=== PATIENT | female | born 1985 | race Two or more races ===

== ENCOUNTER 2024-10-26 12:11 | Inpatient (IN) | payer OTHER ==
[~2024-10-26] VITALS: Ht 162.6 cm; Wt 111.0 kg
--- NOTE | 2024-10-26 12:27 | ED.PDOC ---
History of Present Illness HPI Comments 39 y/o F, with no prior cardiac history presents to the ED for CC of abnormal EKG. Patient reports, she is coming from Urgent Care where she was relayed to the ED d/t an abnormal EKG; patient endorses to have been having experiencing chest pain. Patient denies cough, congestion, shortness of breath, nausea, or vomiting. Chief Complaint: Abnormal LAB's Time Seen by MD: 12:30 Reviewed Notes: Nurses Notes, Medications, Allergies Allergies: Coded Allergies: Amoxicillin (Verified Allergy, Unknown, 10/26/24) Metoclopramide (Verified Allergy, Unknown, 10/26/24) Potassium Chlorate (Verified Allergy, Unknown, 10/26/24) Information Source: Patient Mode of Arrival: Ambulatory Severity: Moderate Timing: Minutes Duration: Since onset Prehospital treatment: None Past Medical History PAST MEDICAL HISTORY: Denies Surgical History: Denies all surgeries [employer] History: Denies all [employer] Hx Family History Family History: Unknown Social History Smoker: Non-Smoker Alcohol: Denies ETOH Use Drugs: Denies Drug Use Lives In: Home Constitutional: denies: chills, diaphoresis, fatigue, fever, malaise, sweats, weakness, others EENTM: denies: blurred vision, double vision, ear bleeding, ear discharge, ear drainage, ear pain, ear ringing, eye pain, eye redness, hearing loss, mouth pain, mouth swelling, nasal discharge, nose bleeding, nose congestion, nose pain, photophobia, tearing, throat pain, throat swelling, voice changes, others Respiratory: denies: cough, hemoptysis, orthopnea, SOB at rest, shortness of breath, SOB with excertion, stridor, wheezing, others Cardiovascular: reports: chest pain; denies: dizzy spells, diaphoresis, Dyspnea on exertion, edema, irregular heart beat, left arm pain, lightheadedness, palpitations, PND, syncope, others Gastrointestinal: denies: abdomen distended, abdominal pain, blood streaked bowels, constipated, diarrhea, dysphagia, difficulty swallowing, hematemesis, melena, nausea, poor appetite, poor fluid intake, rectal bleeding, rectal pain, vomiting, others Genitourinary: denies: abnormal vagina bleeding, burning, dyspareunia, dysuria, flank pain, frequency, hematuria, incontinence, pain, , vagina discharge, urgency, others Neurological: denies: dizziness, fainting, headache, left sided numbness, left sided weakness, numbness, paresthesia, pre-existing deficit, right sided numbness, right sided weakness, seizure, speech problems, tingling, tremors, weakness, others Musculoskeletal: denies: back pain, gout, joint pain, joint swelling, muscle pain, muscle stiffness, neck pain, others Integumetry: denies: bruises, change in color, change in hair/nails, dryness, laceration, lesions, lumps, rash, wounds, others Allergic/Immunocompromised: denies: Difficulty Healing, Frequent Infections, Hives, Itching, others Hematologic/Lymphatic: denies: anemia, blood clots, easy bleeding, easy bruising, swollen glands, others Endocrine: denies: excessive hunger, excessive sweating, excessive thirst, excessive urination, flushing, intolerance to cold, intolerance to heat, unexplained weight gain, unexplained weight loss, others Psychiatric: denies: anxiety, bipolar disorder, depression, hopeless, panic disorder, schizophrenia, sleepless, suicidal, others All Other Systems: Reviewed and Negative Physical Exam General Appearance: Moderate Distress HEENT: Normal ENT Inspection, Pharynx Normal, TMs Normal Neck: Full Range of Motion, Non-Tender, Normal, Normal Inspection Respiratory: Chest Non-Tender, Lungs Clear, No Accessory Muscle Use, No Respiratory Distress, Normal Breath Sounds Cardiovascular: No Edema, No JVD, No Murmur, No Gallop, Normal Peripheral Pulses, Regular Rate/Rhythm Breast Exam: Deferred Gastrointestinal: No Organomegaly, Non Tender, No Pulsatile Mass, Normal Bowel Sounds, Soft Genitalia: Deferred Pelvic: Deferred Rectal: Deferred Extremities: No calf tenderness, Normal capillary refill, Normal inspection, Normal range of motion, Non-tender, No pedal edema Musculoskeletal : Apperance: Normal Neurologic: Alert, program aide II-XII nml as Tested, No Motor Deficits, Normal Affect, Normal Mood, No Sensory Deficits Cerebellar Function: Normal Reflexes: Normal Skin: Dry, Normal Color, Warm Peripheral Pulses: 3+ Radial (R), 3+ Radial (L) Lymphatic: No Adenopathy Was a procedure done? Was a procedure done?: No EKG EKG : Pulse Rate (adult): 85 [place]: Normal Cardiac Rhythm: NSR Block: None Hypertrophy: None ST: Normal Differential Dx Considerations may include: Pulmonary hypertension Electrolyte imbalance X-Ray, Labs, Meds, VS Vital Signs Date Time Temp Pulse Resp B/P (MAP) Pulse Ox O2 Delivery O2 Flow Rate FiO2 10/26/24 12:31 85 10/26/24 12:27 85 10/26/24 12:14 97.5 92 16 147/92 97 97.5 Lab Test 10/26/24 14:03 10/26/24 13:07 Range/Units Troponin I High Sensitivity < 3 L < 3 L </=34 ng/L White Blood Count 6.5 4.4-10.8 10^3/uL Red Blood Count 4.20 4.0-5.20 10^6/uL Hemoglobin 12.3 12.2-16.2 g/dL Hematocrit 37.6 36.0-46.0 % Mean Corpuscular Volume 89.6 80.0-100.0 fL Mean Corpuscular Hemoglobin 29.4 28.0-32.0 pg Mean Corpuscular Hemoglobin Concent 32.8 32.0-36.0 g/dL Red Cell Distribution Width 13.3 11.8-14.3 % Platelet Count 332 140-450 10^3/uL Mean Platelet Volume 7.7 6.9-10.8 fL Neutrophils (%) (Auto) 52.3 37.0-80.0 % Lymphocytes (%) (Auto) 39.4 10.0-50.0 % Monocytes (%) (Auto) 4.6 0.0-12.0 % Eosinophils (%) (Auto) 2.7 0.0-7.0 % Basophils (%) (Auto) 1.0 0.0-2.0 % Neutrophils # (Auto) 3.4 1.6-8.6 10 ^3/uL Lymphocytes # (Auto) 2.5 0.4-5.4 10 ^3/uL Monocytes # (Auto) 0.3 0-1.3 10 ^3/uL Eosinophils # (Auto) 0.2 0-0.8 10 ^3/uL Basophils # (Auto) 0.1 0-0.2 10 ^3/uL Nucleated Red Blood Cells 0.1 % Sodium Level 142 136-145 mmol/L Potassium Level 4.2 3.5-5.1 mmol/L Chloride Level 105 98-107 mmol/L Carbon Dioxide Level 29 20-31 mmol/L Anion Gap 8 5-15 Blood Urea Nitrogen 11 9-23 mg/dL Creatinine 0.91 0.550-1.02 mg/dL Glomerular Filtration Rate Calc 82 >90 mL/min BUN/Creatinine Ratio 12.1 10.0-20.0 Serum Glucose 117 H 74-106 mg/dL Calcium Level 9.5 8.7-10.4 mg/dL Patient alert. Complaining of chest pain. Vitals stable. Answering questions. EKG reviewed does not show any acute changes possible old changes. Cardiology consultation. Echocardiogram. History of pulmonary hypertension. Continues to have chest pain. High-risk. Was given aspirin. Explained to the patient. Continue monitoring. Time of 1ST Reevaluation: 13:00 Reevaluation 1ST: Unchanged Patient Education/Counseling: Diagnosis, Treatment Family Education/Counseling: No Family Present SEPSIS Sepsis Screen Date sepsis recognized/suspect: Oct 26, 2024 Time Sepsis recognized/suspect: 1217 Recent Procedure: No On Antibiotic Therapy: No Respiratory Rate >20: No Heart Rate >90: Yes Temp<36 C (96.8 F) or >38.3 C: No SBP <90 or MAP <65 mmHG: No New Acute Mental Status Change: No Is the patient on CPAP, BIPAP,: No Physician Orders Electrocardigram (10/26/24 12:30) Electrocardigram (10/26/24 13:30) Electrocardigram (10/26/24 15:30) Urinalysis (10/26/24 12:54) Vital Signs Date Time Temp Pulse Resp B/P (MAP) Pulse Ox O2 Delivery O2 Flow Rate FiO2 10/26/24 12:31 85 10/26/24 12:27 85 10/26/24 12:14 97.5 92 16 147/92 97 97.5 Laboratory Tests Test 10/26/24 13:07 White Blood Count 6.5 10^3/uL (4.4-10.8) Departure 1 Departure Time of Disposition: 15:58 Impression: Primary Impression: Chest pain of unknown etiology Disposition: ADMITTED INPATIENT Admit to: Med Surg Condition: Guarded Critical Care Note Critical Care Time?: No Stability Stability form required: No Heart Score Heart Score: Heart Score Response (Comments) Value History Slightly Suspicious 0 EKG Normal 0 Age <45 0 Risk Factors 1 or 2 risk factors 1 Troponin Normal limit 0 Total 1 I personally scribed for FRANCOIS BRYAN MD ([email or web address]) on 10/26/24 at 12:27. Electronically submitted by Zaida Recinos ([email or web address]). FRANCOIS BRYAN MD Oct 26, 2024 12:27
[2024-10-26 13:25] LABS: Chloride 105 mmol/L (98-107); Potassium 4.2 mmol/L (3.5-5.1); Sodium 142 mmol/L (136-145)
[2024-10-26 13:26] LABS: Anion Gap 8 (5-15); Calcium 9.5 mg/dL (8.7-10.4); Carbon Dioxide 29 mmol/L (20-31)
[2024-10-26 13:30] LABS: Hematocrit 37.6 % (36.0-46.0); Hemoglobin 12.3 g/dL (12.2-16.2); Mean Corpuscular Hemoglobin 29.4 pg (28.0-32.0); Mean Corpuscular Volume 89.6 fL (80.0-100.0); Nucleated Red Blood Cells % 0.1 %
[2024-10-26 13:31] LABS: BUN/Creatinine Ratio 12.1 (10.0-20.0); Blood Urea Nitrogen 11 mg/dL (9-23); Glucose 117 mg/dL (74-106)
[2024-10-26] MEDS: NITROGLYCERIN 0.4 MG SL TAB SL ONE (16:44)
[2024-10-26 18:59] LABS: Urine Protein, UAD Negative (Negative)
[2024-10-26] MEDS ORDERED: MORPHINE SULFATE INJ 2 MG/ml SYRG IV PRN (23:15)
--- NOTE | 2024-10-26 23:17 | DVHHPRES ---
History of Present Illness Resident Creating Document: CANDE BEAULIEU RESIDENT History of Present Illness Maria R Encarnacion is a 39-year-old female, with past medical history of pulmonary hypertension, sleep apnea, anemia and hypertension. The patient presents to the ED with history of 1 week of chest pain 7/10, pressure-like, substernal, intermittent, every episode last 2hrs, irradiates to the jaw, that aggravate with movements or activity and improves at rest. associate with SOB, orthopnea, dizziness, cold sweat and lightheaded. Today, the pain exacerbates to 10/10, patient decided to visit the local urgent care and was referred to [facility] after being found with an abnormal EKG. Patient denies fever, chills, cough, congestion, nausea, or vomiting. Initial evaluation in the ED showed troponins <3, <3., BP 128/76mmHg. The patient will be admitted for further evaluation and management. Cardiovascular: HTN, pulmonary hypertension Pulmonary: Asthma Heme/Onc: Anemia NOS Psych: Anxiety Renal/: Other (PCOS) Endocrine: Other (Pre-Diabetes) Past Surgical History: Other (Breast reduction, L Rotator cuff arthroscopy ) Family History: Hyperlipidemia, Hypertension Smoke: No ALCOHOL: none Drugs: None Lives: with Family Review of Systems Constitutional: No: Fever, Chills, Sweats, Weakness, Malaise, Other Eyes: No: Pain, Vision change, Conjunctivae inflammation, Eyelid inflammation, Other, Redness ENT: No: Ear pain, Ear discharge, Nose pain, Nose discharge, Nose congestion, Mouth pain, Mouth swelling, Throat pain, Throat swelling, Other Respiratory: Shortness of breath, SOB with excertion; No: Cough, Dry, Wheezing, Hemoptysis, Pleuritic Pain, Sputum, Wheezing, Other Cardiovascular: Chest Pain, Palpitations, Orthopnea, Lt Headedness; No: Paroxysmal Noc. Dyspnea, Edema, Other Gastrointestinal: No: Nausea, Vomiting, Abdominal Pain, Diarrhea, Constipation, Melena, Hematochezia, Other Genitourinary: No Dysuria, No Frequency, No Incontinence, No Hematuria, No Retention, No Other Musculoskeletal: No: other, neck pain, shoulder pain, arm pain, back pain, hand pain, leg pain, foot pain Skin: No: Rash, Lesions, Jaundice, Bruising, Other Neurological: No: Weakness, Numbness, Incoordination, Change in speech, Confusion, Seizures, Other Allergies: Coded Allergies: Amoxicillin (Verified Allergy, Unknown, 10/26/24) Metoclopramide (Verified Allergy, Unknown, 10/26/24) Potassium Chlorate (Verified Allergy, Unknown, 10/26/24) Exam Vital Signs Vital Signs Date Time Temp Pulse Resp B/P (MAP) Pulse Ox O2 Delivery O2 Flow Rate FiO2 10/26/24 20:01 98.1 80 20 128/76 (93) 96 98.1 10/26/24 20:01 Room Air General Appearance: Alert, Oriented X3, No acute distress HEENT: Atraumatic, Mucous membr. moist/pink Respiratory: Clear to auscultation, Normal air movement Cardiovascular: Regular rate, Normal S1, Normal S2, No murmurs Abdominal: Normal bowel sounds, Soft, No tenderness, No hepatospenomegaly, No masses Extremities: No clubbing, No cyanosis, No edema, Normal pulses, No tenderness/swelling Skin: No rashes, No breakdown, No significant lesion Neuro: Normal gait, Normal speech, Normal tone, Sensation intact Psych/Mental Status: Mental status NL, Mood NL Labs/Xrays Labs Test 10/26/24 15:58 10/26/24 14:03 10/26/24 13:07 Range/Units Urine Color Light-yellow Yellow Urine Clarity Turbid H Clear Urine pH 6.5 5.0-9.0 Urine Specific [place] 1.011 1.001-1.035 Urine Protein Negative Negative Urine Ketones Negative Negative Urine Blood Negative Negative /uL Urine Nitrite Negative Negative Urine Bilirubin Negative Negative Urine Urobilinogen Normal Negative mg/dL Urine Leukocyte Esterase Negative Negative /uL Urine Glucose Normal Normal mg/dL Troponin I High Sensitivity < 3 L </=34 ng/L White Blood Count 6.5 4.4-10.8 10^3/uL Red Blood Count 4.20 4.0-5.20 10^6/uL Hemoglobin 12.3 12.2-16.2 g/dL Hematocrit 37.6 36.0-46.0 % Mean Corpuscular Volume 89.6 80.0-100.0 fL Mean Corpuscular Hemoglobin 29.4 28.0-32.0 pg Mean Corpuscular Hemoglobin Concent 32.8 32.0-36.0 g/dL Red Cell Distribution Width 13.3 11.8-14.3 % Platelet Count 332 140-450 10^3/uL Mean Platelet Volume 7.7 6.9-10.8 fL Neutrophils (%) (Auto) 52.3 37.0-80.0 % Lymphocytes (%) (Auto) 39.4 10.0-50.0 % Monocytes (%) (Auto) 4.6 0.0-12.0 % Eosinophils (%) (Auto) 2.7 0.0-7.0 % Basophils (%) (Auto) 1.0 0.0-2.0 % Neutrophils # (Auto) 3.4 1.6-8.6 10 ^3/uL Lymphocytes # (Auto) 2.5 0.4-5.4 10 ^3/uL Monocytes # (Auto) 0.3 0-1.3 10 ^3/uL Eosinophils # (Auto) 0.2 0-0.8 10 ^3/uL Basophils # (Auto) 0.1 0-0.2 10 ^3/uL Nucleated Red Blood Cells 0.1 % Sodium Level 142 136-145 mmol/L Potassium Level 4.2 3.5-5.1 mmol/L Chloride Level 105 98-107 mmol/L Carbon Dioxide Level 29 20-31 mmol/L Anion Gap 8 5-15 Blood Urea Nitrogen 11 9-23 mg/dL Creatinine 0.91 0.550-1.02 mg/dL Glomerular Filtration Rate Calc 82 >90 mL/min BUN/Creatinine Ratio 12.1 10.0-20.0 Serum Glucose 117 H 74-106 mg/dL Calcium Level 9.5 8.7-10.4 mg/dL SEPSIS Sepsis Screen Date sepsis recognized/suspect: Oct 26, 2024 Time Sepsis recognized/suspect: 2003 Recent Procedure: No On Antibiotic Therapy: No Respiratory Rate >20: No Heart Rate >90: No Temp<36 C (96.8 F) or >38.3 C: No SBP <90 or MAP <65 mmHG: No New Acute Mental Status Change: No Is the patient on CPAP, BIPAP,: No Physician Orders Insert Midline (10/26/24 16:43) Admit (10/26/24 23:09) Code Status (10/26/24 23:09) Vital Signs .PER UNIT PROTOCOL (10/26/24 23:09) Review Orders With (10/26/24 23:09) Bedrest With Bathroom Privileg (10/26/24 23:09) Notify Md Of Changes From Base (10/26/24 23:09) Advance Directive (10/26/24 23:09) Chest Two Views Routine (10/27/24 04:00) Urinalysis (10/26/24 23:09) Patient Condition (10/26/24 23:09) Allergies (10/26/24 23:09) Hydrocodone-Acet 5/325mg Tab ([place] 5/32 (10/26/24 23:15) Ondansetron Hcl (Zofran) (10/26/24 23:15) Drug Screen (10/26/24 23:09) Morphine 2mg Iv Q4hprn (10/26/24 23:15) Nitroglycerin Sublingual (Ntrostat Subli (10/26/24 23:15) Morphine Sulfate Injection (10/26/24 23:15) Stat Ekg For Chest Pain (10/26/24 23:09) Notify Md Of Changes From Base (10/26/24 23:09) Beta Hcg, Quantitative (10/26/24 23:09) D-Dimer (10/26/24 23:09) Covid19 Antigen Melisa (10/26/24 ) Rapid Influenza A&B (10/26/24 23:09) Vital Signs Date Time Temp Pulse Resp B/P (MAP) Pulse Ox O2 Delivery O2 Flow Rate FiO2 10/26/24 20:01 98.1 80 20 128/76 (93) 96 98.1 10/26/24 20:01 80 20 96 Room Air 10/26/24 16:25 97.9 75 16 137/80 (99) 99 97.9 Laboratory Tests Test 10/26/24 13:07 White Blood Count 6.5 10^3/uL (4.4-10.8) Medications Medications Dose Ordered Sig/Armani Route Start Time Stop Time Status Last Admin Dose Admin Aspirin 325 mg ONCE ONCE PO 10/26/24 16:00 10/26/24 16:01 DC 10/26/24 16:44 325 MG Assessment/Plan Assessment/Plan #Chest pain, R/O ACS #Pulmonary hypertension Aspirin 325mg po Nitroglycerin 0.4mg Iv Morphine 2mg IV Chest Xray Troponins EKG Consider ECHO and cardiac consult. #Rule out PE D-Dimer #Sleep Apnea Patient uses CPAP at home #Obesity Life style counselling #Anxiety Medication reconciliation. Cardiac diet DVT prophylaxis- ambulating. PUD prophylaxis Protonic. Goals of care discussed with the patient > 35 min. Discussed plan of care with Dr. New Code status: Full code PCP: Dr.Manuel Roper. Plan discussed with: Patient, the patient agrees with the admission plan. Plan discussed with: Patient My Orders Orders - CANDE BEAULIEU RESIDENT Procedure Category Date Status Time Admit ADMIT 10/26/24 Transmitted 23:09 Code Status CODE 10/26/24 Transmitted 23:09 Vital Signs [facility] 10/26/24 Transmitted 23:09 Review Orders With [facility] 10/26/24 Transmitted Adm. 23:09 Bedrest With Bathroom [facility] 10/26/24 Transmitted Privileg 23:09 Notify Md Of Changes [facility] 10/26/24 Transmitted From Base 23:09 Advance Directive [facility] 10/26/24 Transmitted 23:09 Chest Two Views XY 10/27/24 Logged Routine 04:00 Urinalysis LAB 10/26/24 Transmitted 23:09 Patient Condition ORDERS 10/26/24 Transmitted 23:09 Allergies [facility] 10/26/24 Transmitted 23:09 Hydrocodone-Acet PHA 10/26/24 Transmitted 5/325mg Tab ([place] 23:15 Ondansetron Hcl PHA 10/26/24 Transmitted (Zofran) 23:15 Drug Screen LAB 10/26/24 Transmitted 23:09 Morphine 2mg Iv Q4hprn PHA 10/26/24 Transmitted 23:15 Nitroglycerin PHA 10/26/24 Transmitted Sublingual (Ntrostat 23:15 Morphine Sulfate PHA 10/26/24 Transmitted Injection 23:15 Stat Ekg For Chest [facility] 10/26/24 Transmitted Pain 23:09 Notify Md Of Changes [facility] 10/26/24 Transmitted From Base 23:09 Beta Hcg, Quantitative LAB 10/26/24 Transmitted 23:09 D-Dimer LAB 10/26/24 Transmitted 23:09 Covid19 Antigen Melisa LAB 10/26/24 Transmitted Rapid Influenza A&B LAB 10/26/24 Transmitted 23:09 Date of Service: Oct 26, 2024 Billing Provider: RANI NEW MD Common Visit Codes: [id number] INP/OBS CARE (HIGH) Secondary Visit Codes: [id number] CARE PLAN 30 MINUTES CANDE BEAULIEU RESIDENT Oct 26, 2024 23:17
--- NOTE | 2024-10-27 00:16 | ECG ---
[facility] Test Date: 2024-10-26 Test Time: 12:21:17 Pat Name: JEY BLAKE Department: ED Room: [address] [place] [address] A Gender: F Relaster: sandra : 1985 Requested By: FRANCOIS BRYAN Order Number: [id number] Reading MD: Rodriguez Perez Measurements Intervals [place] Rate: 85 P: 19 TX: 138 QRS: 42 QRSD: 100 T: 26 QT: 396 QTc: 471 Interpretive Statements Sinus rhythm Baseline wander in lead(s) I,II,III,aVL,aVF,V1,V2 Electronically Signed On 10-27-2024 18:23:22 PDT by Rodriguez Perez Please click the below link to view image of tracing.
[2024-10-27] MEDS: ONDANSETRON HCL 4 MG/2 ML VIAL IV PRN (01:38)
[2024-10-27] MEDS: MORPHINE SULFATE INJ 2 MG/ml SYRG IV PRN (01:39)
[2024-10-27 02:24] VITALS: PULSE 71; RESP 15; O2SAT 95
[2024-10-27 03:16] VITALS: BP 119/66; PULSE 71; RESP 18; TEMP 98.2; O2SAT 99
[2024-10-27 04:24] LABS: COVID19 ANTIGEN SOFIA FIA NEGATIVE (NEGATIVE)
--- NOTE | 2024-10-27 05:55 | ECG ---
[facility] Test Date: 2024-10-27 Test Time: 05:53:54 Pat Name: JEY BLAKE Department: ER Room: [address] [place] [address] A Gender: F Rate Supervisor: JOSE RAFAEL : 1985 Requested By: CANDE BEAULIEU Order Number: [id number] Reading MD: Rodriguez Perez Measurements Intervals [place] Rate: 77 P: 15 NE: 149 QRS: 14 QRSD: 93 T: 1 QT: 394 QTc: 446 Interpretive Statements Sinus rhythm Borderline T wave abnormalities Electronically Signed On 10-27-2024 18:26:20 PDT by Rodriguez Perez Please click the below link to view image of tracing.
--- NOTE | 2024-10-27 06:32 | DVH ---
CHEST RADIOGRAPH Indication: Pulmonray hypertension Technique: Single frontal view of the chest was obtained COMPARISON: None FINDINGS: Lines and Tubes: None Lungs: Clear Pleura: No effusion. No pneumothorax. Cardiomediastinal contours: Unremarkable Bones: Unremarkable IMPRESSION: 1. No acute disease.
[2024-10-27 06:50] VITALS: BP 135/75; PULSE 71; RESP 20; TEMP 98; O2SAT 93
[2024-10-27 12:00] VITALS: TEMP 97.9; O2SAT 98
[2024-10-27 13:36] LABS: Hematocrit 34.9 % (36.0-46.0); Hemoglobin 11.6 g/dL (12.2-16.2); Mean Corpuscular Hemoglobin 29.5 pg (28.0-32.0); Mean Corpuscular Volume 88.8 fL (80.0-100.0); Nucleated Red Blood Cells % 0.0 %
[2024-10-27 13:54] LABS: Albumin 4.3 g/dL (3.2-4.8); Alkaline Phosphatase 66 U/L (46-116); Anion Gap 8 (5-15); BUN/Creatinine Ratio 10.8 (10.0-20.0); Blood Urea Nitrogen 9 mg/dL (9-23); Calcium 9.1 mg/dL (8.7-10.4); Carbon Dioxide 27 mmol/L (20-31); Chloride 107 mmol/L (98-107); Glucose 95 mg/dL (74-106); Potassium 4.0 mmol/L (3.5-5.1); Sodium 142 mmol/L (136-145); Total Protein 6.5 g/dL (5.7-8.2)
[2024-10-27 13:55] LABS: Alanine Aminotransferase < 9 U/L (7-40); Bilirubin, Total 0.2 mg/dL (0.2-1.0)
[2024-10-27] MEDS: NITROGLYCERIN 0.4 MG SL TAB SL PRN (14:50)
[2024-10-27 14:55] LABS: Magnesium 2.0 mg/dL (1.6-2.6)
[2024-10-27 14:56] LABS: Triglycerides 193.0 mg/dL (< 150)
[2024-10-27 14:57] LABS: Cholesterol 150.0 mg/dL (< 200); HDL Cholesterol 47.0 mg/dL (40-59)
--- NOTE | 2024-10-27 16:07 | DVHPNRES ---
Progress Note Date Seen: Oct 27, 2024 Resident Creating Document: NAZANIN PATTON Medical Necessity Reason Pt with a Central, PICC or Fol: No (RN) Subjective Review of Systems This is a 39-year-old female with a history of pulmonary hypertension, sleep apnea, anemia, and hypertension came to the ED with chest pain for 1 week. Patient reports that 1 week history of sharp, shooting, pressure-like substernal chest pain rated 7/10, every episode last 2hr, radiates to the jaw, aggravate with movements or activity and improves at rest, associate with SOB, orthopnea, dizziness, cold sweat and lightheaded. Today, the pain exacerbates to 10/10, patient decided to visit the local urgent care and was referred to [facility] after being found with an abnormal EKG. Patient denies fever, chills, cough, congestion, nausea, or vomiting. Initial evaluation in the ED showed troponins <3, <3., BP 128/76mmHg. The patient will be admitted for further evaluation and management. Past medical history: HTN, pulmonary hypertension, Asthma, PCOS, Pre-Diabetes Past surgical history: Breast reduction, L Rotator cuff arthroscopy Social & Personal history: Family History: Hyperlipidemia, Hypertension Smoke: No ALCOHOL: none Drugs: None Lives: with Family Allergies: Coded Allergies: Amoxicillin (Verified Allergy, Unknown, 10/26/24) Metoclopramide (Verified Allergy, Unknown, 10/26/24) Potassium Chlorate (Verified Allergy, Unknown, 10/26/24) Patient seen and examined at bedside. Patient is alert and oriented to time, place person and responding to all questions. Eyes: No Pain, No Vision change, No Conjunctivae inflammation, No Eyelid inflammation, No Other, No Redness ENT: No Ear pain, No Ear discharge, No Nose pain, No Nose discharge, No Nose congestion, No Mouth pain, No Mouth swelling, No Throat pain, No Throat swelling, No Other Cardiovascular: Chest Pain, Palpitations, Orthopnea, Lt Headedness. No Paroxysmal No Dyspnea, No Edema, No Other Respiratory: Shortness of breath, SOB with exertion. No Cough, No Dry, No Wheezing, No Hemoptysis, No Pleuritic Pain, No Sputum, No Other Gastrointestinal: No Nausea, No Vomiting, No Abdominal Pain, No Diarrhea, No Constipation, No Melena, No Hematochezia, No Other Genitourinary: No Dysuria, No Frequency, No Incontinence, No Hematuria, No Retention, No Other Musculoskeletal: No other, No neck pain, No shoulder pain, No arm pain, No back pain, No hand pain, No leg pain, No foot pain Skin: No Rash, No Lesions, No Jaundice, No Bruising, No Other Objective vital signs Vital Sign Date Time Temp Pulse Resp B/P (MAP) Pulse Ox O2 Delivery O2 Flow Rate FiO2 10/27/24 14:50 81 18 115/69 10/27/24 12:00 97.9 98 97.9 10/27/24 08:00 Room Air* 0 21 medications Current Medications Medications Dose Ordered Sig/Armani Route Start Time Stop Time Status Last Admin Dose Admin Acetaminophen/ Hydrocodone Bitart 1 tab Q4HP PRN PO 10/26/24 23:15 Ondansetron HCl 4 mg Q4HP PRN IV 10/26/24 23:15 10/27/24 01:38 4 MG Morphine Sulfate 2 mg Q4HPRN PRN IV 10/26/24 23:15 Nitroglycerin 0.4 mg Q5MINP PRN SL 10/26/24 23:15 10/27/24 14:50 0.4 MG Morphine Sulfate 2 mg Q30M PRN IV 10/26/24 23:15 10/27/24 12:14 2 MG laboratory and microbiology Laboratory Tests 10/27/24 13:04 Test 10/27/24 13:04 Range/Units Serum Glucose 95 74-106 mg/dL Labs and/or images reviewed: Labs reviewed by me, Image(s) reviewed by me Problem List/Assessment/Plan Problem List/Assessment/Plan # Acute chest pain, r/o ACS # Pulmonary hypertension # Rule out PE - Aspirine 325 mg PO - Nitroglycerin 0.4 mg IV - Morphine 2mg IV - Chest X-Ray: No acute disease - Troponin <3 - D-Dimer: 0.22 - BNP - Echocardiogram - EKG: Sinus rhythm. Borderline T wave abnormality - Cardiology consult # Sleep apnea - patient uses CPAP at home # Obesity - BMI 42.0 kg/m2 - Life style counselling - HbA1C # Anxiety - home medication Goals of care: Full code, discussed for >16 minutes on 10/27/24 Plan discussed with patient Plan discussed with Dr. Pavon Plan discussed with: Patient, Other My Orders My Orders Orders - YOU,YOUNGSANG RESIDENT Procedure Category Date Status Time * Cardiology Consult CONS 10/27/24 Transmitted 13:22 Complete Blood Count LAB 10/28/24 Verified 04:00 Basic Metabolic Panel LAB 10/28/24 Verified 04:00 Date of Service: Oct 27, 2024 Billing Provider: JAN PAVON MD Common Visit Codes: [id number] INP/OBS CARE(HIGH) NAZANIN PATTON Oct 27, 2024 16:07 JAN PAVON MD Nov 01, 2024 20:14
[2024-10-27 16:48] VITALS: BP 122/81; PULSE 96; RESP 18
[2024-10-27] MEDS: HYDROcodone-ACET 5/325MG TAB PO PRN (16:48)
--- NOTE | 2024-11-01 20:18 | DVHDS2 ---
Discharge Summary Date of Admission Oct 26, 2024 at 23:09 Date of Discharge: Oct 27, 2024 Labs/Diagnostic Data: Laboratory Results Test 10/27/24 13:04 10/27/24 03:00 10/26/24 23:31 10/26/24 15:58 White Blood Count 7.5 10^3/uL (4.4-10.8) Red Blood Count 3.92 10^6/uL (4.0-5.20) Hemoglobin 11.6 g/dL (12.2-16.2) Hematocrit 34.9 % (36.0-46.0) Mean Corpuscular Volume 88.8 fL (80.0-100.0) Mean Corpuscular Hemoglobin 29.5 pg (28.0-32.0) Mean Corpuscular Hemoglobin Concent 33.2 g/dL (32.0-36.0) Red Cell Distribution Width 13.6 % (11.8-14.3) Platelet Count 336 10^3/uL (140-450) Mean Platelet Volume 7.9 fL (6.9-10.8) Neutrophils (%) (Auto) 51.2 % (37.0-80.0) Lymphocytes (%) (Auto) 38.0 % (10.0-50.0) Monocytes (%) (Auto) 6.6 % (0.0-12.0) Eosinophils (%) (Auto) 3.0 % (0.0-7.0) Basophils (%) (Auto) 1.2 % (0.0-2.0) Neutrophils # (Auto) 3.8 10 ^3/uL (1.6-8.6) Lymphocytes # (Auto) 2.9 10 ^3/uL (0.4-5.4) Monocytes # (Auto) 0.5 10 ^3/uL (0-1.3) Eosinophils # (Auto) 0.2 10 ^3/uL (0-0.8) Basophils # (Auto) 0.1 10 ^3/uL (0-0.2) Nucleated Red Blood Cells 0.0 % Sodium Level 142 mmol/L (136-145) Potassium Level 4.0 mmol/L (3.5-5.1) Chloride Level 107 mmol/L (98-107) Carbon Dioxide Level 27 mmol/L (20-31) Anion Gap 8 (5-15) Blood Urea Nitrogen 9 mg/dL (9-23) Creatinine 0.83 mg/dL (0.550-1.02) Glomerular Filtration Rate Calc 92 mL/min (>90) BUN/Creatinine Ratio 10.8 (10.0-20.0) Serum Glucose 95 mg/dL (74-106) Hemoglobin A1c 5.6 % A1C (<5.7) Calcium Level 9.1 mg/dL (8.7-10.4) Magnesium Level 2.0 mg/dL (1.6-2.6) Total Bilirubin 0.2 mg/dL (0.2-1.0) Aspartate Amino Transferase (AST) 11 U/L (13-40) Alanine Aminotransferase (ALT) < 9 U/L (7-40) Alkaline Phosphatase 66 U/L (46-116) B-Type Natriuretic Peptide 14.06 pg/mL (0-100) Total Protein 6.5 g/dL (5.7-8.2) Albumin 4.3 g/dL (3.2-4.8) Triglycerides Level 193 mg/dL (< 150) Cholesterol Level 150 mg/dL (< 200) LDL Cholesterol 86 mg/dL (< 100) HDL Cholesterol 47 mg/dL (40-59) Influenza Type A Antigen Negative (Negative) Influenza Type B Antigen Negative (Negative) SARS-CoV-2 Antigen (Rapid) Negative (NEGATIVE) D-Dimer, Quantitative 0.22 mg/L FEU (0.0-0.49) Beta HCG, Quantitative 0.3 mIU/mL (1.5-4.2) Urine Color Light-yellow (Yellow) Urine Clarity Turbid (Clear) Urine pH 6.5 (5.0-9.0) Urine Specific [place] 1.011 (1.001-1.035) Urine Protein Negative (Negative) Urine Ketones Negative (Negative) Urine Blood Negative /uL (Negative) Urine Nitrite Negative (Negative) Urine Bilirubin Negative (Negative) Urine Urobilinogen Normal mg/dL (Negative) Urine Leukocyte Esterase Negative /uL (Negative) Urine Glucose Normal mg/dL (Normal) Test 10/26/24 14:03 Troponin I High Sensitivity < 3 ng/L (</=34) Other Laboratory Tests 10/27/24 13:04 Brief Hx & Hospital Course: Final diagnoses: Acute chest pain, undetermined etiology Pulmonary hypertension Sleep apnea Obesity Anxiety The patient was seen in ER and was admitted however she left the hospital AMA. Condition at Discharge: Undetermined Final Diagnosis/Problems List Chest pain Discharge Disposition: AMA SNF Discharge Will this Physician continue t: No Discharge Statement: "Patient was advised to return to the ER or call 911 if any headaches, dizziness, shortness of breath, chest pain, abdominal pain, bleeding, fevers, or worsening of medical condition. Patient was counseled about treatment plan, medications, possible side effects, patientverbalized understanding. All questions were answered to the best of my ability. This discharge took greater then 30 minutes in planning, reviewing documentation, counseling the patient, and discussing with other team members." ASSESSMENT ASSESSMENT Assessment Date of Service: Oct 27, 2024 Billing Provider: JAN BROWN MD Common Visit Codes: NOT BILLABLE JAN BROWN MD Nov 01, 2024 20:18
== END 2024-10-27 17:15 | disposition left against medical advice (07) | DRG 313 ==
LOC: ER 12:11 → OVERFLOW 23:09
PROVIDERS: ADMIT Internal Medicine Geriatric Medicine; ATTEND Emergency Medicine
DX: R07.89 Other chest pain (principal); Z68.41 Body mass index [BMI] 40.0-44.9, adult; G47.30 Sleep apnea, unspecified; E66.9 Obesity, unspecified; F41.9 Anxiety disorder, unspecified; I27.20 Pulmonary hypertension, unspecified; Z20.822 Contact with and (suspected) exposure to COVID-19; R73.03 Prediabetes; J45.909 Unspecified asthma, uncomplicated; E28.2 Polycystic ovarian syndrome; Z53.29 Procedure and treatment not carried out because of patient's decision for other reasons; Z88.8 Allergy status to other drugs, medicaments and biological substances; Z88.1 Allergy status to other antibiotic agents; Z82.49 Family history of ischemic heart disease and other diseases of the circulatory system; Z83.438 Family history of other disorder of lipoprotein metabolism and other lipidemia; Z79.899 Other long term (current) drug therapy
CPT/HCPCS: 36415; 71045; 80048; 80053; 80061; 81003; 83036; 83735; 83880; 84484; 84702; 85025; 85379; 87426; 87804; 93005; G0378; J2405